=== PATIENT | female | born 1995 | race Caucasian/White ===

== ENCOUNTER 2017-06-14 06:54 | Emergency (ER) | payer OTHER ==
[~2017-06-14] VITALS: Ht 165.1 cm; Wt 64.0 kg
[2017-06-14 07:00] VITALS: TEMP 36.7; Ht 165.1 cm; Wt 64.0 kg
[2017-06-14] MEDS ORDERED: ACETAMINOPHEN 325 MG TAB PO STA (07:14)
--- NOTE | 2017-06-14 07:18 | EMERGENCY ROOM VISIT NOTE ---
History First contact with patient: 07:09 Chief Complaint: FOOT PAIN Stated Complaint: BROKEN RT FOOT/ANKLE History of Present Illness The patient is a 22 year old female who presents to the Emergency Room via private vehicle with complaints of "broken right foot/ankle". The patient states that last night around 1:30 AM she was climbing up a ladder to a bunk bed , when she fell backwards injuring her right foot/ankle. She denies loss of consciousness, or any other injury. She points to the top of the right foot as a location of pain that she rates as a 10/10. She has had no pain medication thus far. She notes that this was her 22st birthday and she has been consuming alcohol. She notes no numbness/tingling in the right foot. Review of Systems A complete 6-point Review of Systems was discussed with the patient, with pertinent positives and negatives listed in the History of Present Illness. All remaining Review of Systems questions can be considered negative unless otherwise specified. Past Medical/Surgical History No pertinent. Social History Smoking Status: Never Smoker Patient is a student and lives locally. Current/Historical Medications No Active Prescriptions or Reported Meds Physical Exam Vital Signs Date Time Temp Pulse Resp B/P (MAP) Pulse Ox O2 Delivery O2 Flow Rate FiO2 06/14/17 07:56 98 16 86/66 97 06/14/17 07:00 36.7 83 18 97/62 98 Room Air Physical Exam VITAL SIGNS - Vital signs and nursing notes were reviewed. Stable. Her blood pressure is lower, however I suspect this is secondary to her health and not from injury. GENERAL -22-year-old female appearing her no meningeal or petechial rash. HEAD - NC/AT.The skin overlying the right foot is unremarkable. No deformity or bruising. Stated age who is in no acute distress. Communicates well with provider and answers questions appropriately. SKIN - Without rashes. There are no gonsalez signs or raccoon's eyes. EYES - PERRL with EOMI bilaterally. Sclera anicteric. EARS - No deformities of external structures noted on gross examination bilaterally. External auditory canals without discharge or otorrhea. Tympanic membranes pearly drake without retraction or bulging. No fluid or purulent material visualized behind the TM. Handle of malleus, umbo, cone of light, pars tensa/flaccid all easily visualized. NOSE - Midline and without cyanosis. No epistaxis or purulent drainage noted. MOUTH/OROPHARYNX - Without perioral cyanosis. Buccal mucosa pink and moist and without leukoplakia. Tongue midline with equal elevation of palate bilaterally. No tonsillar hypertrophy, erythema, or exudates noted. Fair dentition noted. NECK - Neck with FROM. Supple to palpation. No lymphadenopathy noted. No nuchal rigidity. LUNGS - Chest wall symmetric without accessory muscle use, intercostals retractions, or central cyanosis. Normal vesicular breath sounds CTA B/L. No wheezes, rales, or rhonchi appreciated. CARDIAC - RRR with S1/S2. No murmur, rubs, or gallops appreciated. EXTREMITIES - No clubbing or peripheral cyanosis. No pretibial edema present. + 5/5 strength noted in UE/LE bilaterally. Tenderness noted to palpation overlying the top of the right foot. Decreased range of motion secondary to pain. No tenderness in the right knee, right mccullough region, right ankle or distal foot. It is at the proximal anterior metatarsal with palpation. NEUROLOGIC - Cranial nerves II through XII grossly intact. Sensory intact to light touch throughout. Patellar reflexes +2/4. PSYCH - A&O, and cooperates fully with examiner. Pt is very pleasant and interacts well with examiner. Medical Decision & Procedures ER Provider Diagnostic Interpretation: R FOOT MIN 3 VIEWS ROUTINE CLINICAL HISTORY: 22 years-old Female presenting with right foot pain after fall. TECHNIQUE: Frontal, oblique, and lateral views of the right foot were obtained. COMPARISON: None. FINDINGS: No acute fracture or malalignment. Os peroneum noted. No advanced degenerative change. No radiographic soft tissue abnormality. IMPRESSION: No acute osseous injury. Electronically signed by: Hong Sorto M.D. 06/14/2017 7:33 AM Dictated Date/Time: 06/14/2017 7:32 AM R ANKLE MIN 3 VIEWS ROUTINE CLINICAL HISTORY: 22 years-old Female presenting with right foot pain after fall. TECHNIQUE: Frontal, mortise, and lateral views of the right ankle were obtained. COMPARISON: None. FINDINGS: Ankle mortise intact. No acute fracture or malalignment. No advanced degenerative change. Mild soft tissue swelling over the medial malleolus. Os trigonum and os peroneum noted. IMPRESSION: No acute osseous injury. Electronically signed by: Hong Sorto M.D. 06/14/2017 7:32 AM Dictated Date/Time: 06/14/2017 7:31 AM Medications Administered Medications (Trade) Dose Ordered Sig/Gilbert Route Start Time Stop Time Status Last Admin Dose Admin Acetaminophen (Tylenol Tab) 650 mg NOW STAT PO 06/14/17 07:14 06/14/17 07:16 DC 06/14/17 07:23 650 MG Medical Decision Patient was seen and evaluated as above in room a11. She presents to us today with right foot pain. She is nontoxic on exam. She converses well. Review was performed of nursing notes and vital signs. After obtaining a thorough history and physical examination the above work up was performed. X-ray was obtained of the right ankle and foot. Tenderness was localized to the right foot on exam. There is no evidence of fracture or dislocation. This was also read by radiologist. These results were reviewed with the patient. She was given Tylenol for pain and ice packs for comfort. On exam I was unable to appreciate any other injury. There is no evidence of trauma. Care was taken so as to ensure no other injuries were missed given the mechanism/scenario. She is to follow with orthopedics if her pain persists. She was informed that as time goes on if she experiences new areas of pain she is to return. The patient is fully coherent, answers questions appropriately. I do not suspect that she needs to stay here for further monitoring of her intoxicated state. I believe she is beginning to be quite sober. The repeat vital signs do reveal blood pressure little bit lower, however again she is fully coherent, there is no evidence of hypotension on exam and I suspect this is likely her baseline state. The patient was educated upon management, had questions answered prior to discharge, and was discharged home in good condition. In the evaluation and treatment of this patient, the following differential diagnoses were considered: Ankle Fracture, Ankle Sprain, Distal Fibula Fracture , Distal Tibia Fracture, Foot Fracture, Maisonneuve Fracture. Impression Primary Impression: Foot pain Departure Information Dispostion Home / Self-Care Condition GOOD Prescriptions No Active Prescriptions or Reported Meds Referrals No Doctor, Assigned (PCP) Michel Lizarraga M.D. Patient Instructions My [facility] Additional Instructions You have been treated in the Emergency Department for a R Ankle and foot injury. For pain control, you can use the following [id number] medicines: - Regular strength (325mg/tab) Tylenol (acetaminophen) 2 tabs every 4-6 hours as needed. Do not exceed 12 tablets in a 24 hour period. Avoid taking more than 3 grams (3000 mg) of Tylenol per day. This includes any other sources of acetaminophen you may take on a regular basis. - Regular strength (200 mg/tab) Advil (ibuprofen) 1-2 tabs every 4-6 hours as needed. Do not exceed a dose of 3200 mg per day. If this is a recent injury (<24 hrs), ice can be applied to the area of pain for the first 3 days to help decrease pain and inflammation. You have been provided the number for an Orthopaedic Surgeon. You should call this number as soon as possible to establish a follow-up visit from today's Emergency Department visit. Keep the foot brace/splint in place until cleared by Orthopedics. Use the crutches you have been provided to keep ALL weight off of the ankle until weight bearing is tolerable. Return to the Emergency Department if your current symptoms worsen despite treatment course outlined above, or if you develop any of the following symptoms : intractable pain despite aforementioned treatment course or new onset of numbness or tingling of the foot.
--- NOTE | 2017-06-14 07:33 | DIAGNOSTIC IMAGING REPORT ---
R ANKLE MIN 3 VIEWS ROUTINE CLINICAL HISTORY: 22 years-old Female presenting with right foot pain after fall. TECHNIQUE: Frontal, mortise, and lateral views of the right ankle were obtained. COMPARISON: None. FINDINGS: Ankle mortise intact. No acute fracture or malalignment. No advanced degenerative change. Mild soft tissue swelling over the medial malleolus. Os trigonum and os peroneum noted. IMPRESSION: No acute osseous injury. Electronically signed by: Hong Sorto M.D. 06/14/2017 7:32 AM Dictated Date/Time: 06/14/2017 7:31 AM
--- NOTE | 2017-06-14 07:34 | DIAGNOSTIC IMAGING REPORT ---
R FOOT MIN 3 VIEWS ROUTINE CLINICAL HISTORY: 22 years-old Female presenting with right foot pain after fall. TECHNIQUE: Frontal, oblique, and lateral views of the right foot were obtained. COMPARISON: None. FINDINGS: No acute fracture or malalignment. Os peroneum noted. No advanced degenerative change. No radiographic soft tissue abnormality. IMPRESSION: No acute osseous injury. Electronically signed by: Hong Sorto M.D. 06/14/2017 7:33 AM Dictated Date/Time: 06/14/2017 7:32 AM
[2017-06-14 07:56] VITALS: BP 86/66; PULSE 98; O2SAT 97
== END 2017-06-14 08:00 | disposition home or self-care (01) ==
LOC: C.EDB 06:56 → C.EDA 08:00
DX: M79.671 Pain in right foot (principal); W11.XXXA Fall on and from ladder, initial encounter; Y92.003 Bedroom of unspecified non-institutional (private) residence as the place of occurrence of the external cause